=== PATIENT | male | born 1995 | race Two or more races ===

== ENCOUNTER 2021-01-17 14:29 | Outpatient (CLI) | payer OTHER ==
[2021-01-20 21:44] VITALS: BP 160/93
--- NOTE | 2021-01-20 21:44 | SLEEP CARE CONSULTATION ---
Information from patient questionnaire entered by Laxmi Pulido. I have reviewed and concur with the information entered by Laxmi Pulido. This document represents the service I personally performed and the decisions made by me, Stephany Mckeon MD, [facility]. History of Present Illness Service Date and Time: 01/17/2021 1429 Reason for Visit: New patient Chief Complaint: reports: Snoring, Excessive daytime sleepiness, Frequent awakenings at night Date of Onset: 1.5 years Usual bedtime: before 10pm Time it takes to fall asleep: 30-45 minutes Snores at night: Yes Observed to quit breathing while asleep: No Sleeps alone due to snoring: No Number of times waking at night: 1 Reasons for waking at night: reports: Bathroom Toss, Turn, or Twitch while sleeping: Yes Recalls having dreams: Yes Usually gets out of bed at: 5 am Feels refreshed in the morning: Yes Morning headache: No Sleepy or fatigued during the day: Yes Ever fallen asleep while driving: No Takes day naps: Yes Dreams during day naps: No Prior sleep studies: No Additional HPI information: I had the pleasure of seeing Mr. Anderson today regarding the possibility of him having a sleep disorder. As you know, he is a 25 year old gentleman who complains of loud snore. The patient tells me that he normally goes to bed around 9 - 10 pm, and it takes him approximately 30 minutes to fall asleep. He has not been observed to stop breathing in his sleep. His can still sleep in the same bed. He can recall waking up on the average of 1 time during the night. Most of the time he wakes up because of having to use the bathroom. He has never awakened because of his own snoring, choking, or having to gasp for air. There is a lot of tossing and turning in his sleep. No somniloquy (sleep talking) or somnambulism (sleep walking). Generally he can recall having dreams. In the morning he usually gets up out of the bed around 5 - 6 a.m. not feeling refreshed nor rested. He usually does not have a morning headache. During the day he complains of feeling sleepy and fatigued. His score on [place] Sleepiness Scale is 5 out of 24. He never has fallen asleep while driving nor has had any accident due to sleepiness. He usually takes naps during the day. He reports having impaired concentration during the day. - Parasomnia Symptoms Ever been unable to move upon waking from sleep: No Ever felt weak in the knees when startled or emotional: No Bothered by creepy, crawly, restless sensations in legs: No Problems with memory or concentration: No Subjective Initial [place] Sleepiness Scale score: 5 (in 2020) Social History The patient's occupation is a [employer]. Patient is Single and lives in [place]. Have you smoked in the past 12 months: No Alcohol use: Yes Alcohol amount and frequency: 1 cup 1-2 times a month Caffeine use: Yes Caffeine amount and frequency: 200 mg Family History Family history of sleep disordered breathing: No Allergies and Home Medications Drug allergies reviewed: Yes Home medication list reviewed: Yes Review of Systems Weight gain over past 5 years: 25-30 Cardiovascular: denies: high blood pressure, palpitations, chest pain, irregular heart rate or pulse, leg or foot swelling, have to sleep sitting up, other Respiratory: denies: shortness of breath, wheeze, sputum production, chronic cough, other Gastrointestinal: denies: heartburn, difficulty swallowing, nausea, vomitting, diarrhea, abdominal pain, other Urinary: denies: incontinence, frequency, urgency, impotence, other Neurological: denies: headaches, seizure, head trauma, disorientation, speech dysfunction, gait or balance problems, fainting or unconsciousness, other Psychiatric: denies: Attention Deficit Hyperactivity, anxiety, depression, mood disorder, claustrophobia, other Ear/Nose/Throat: denies: nasal congestion, sinus problems, nose bleeds, dry mouth/throat, hoarseness, injury to nose, tonsillectomy, wisdom teeth removed, other Endocrine: denies: thyroid disease, history of goiter, sluggishness, too hot or cold, excessive thirst, increased appetite, increased urination, unexplained weakness, other Musculoskeletal: denies: joint pain, neck pain, back pain, joint swelling, muscle pain or cramping, mobility problems, other Immunologic: reports: sneezing Physical Exam Vital signs obtained and entered by: Dr. mckeon Blood Pressure: 160/93 Cuff size: regular Heart Rate: 86 O2 Saturation: 97 Weight: 286 lb Neck circumference: 16.5 Mood/affect: normal HEENT: No craniofacial malformation Nostrils: partially obstructed Mouth and throat: narrow oropharynx Soft palate: long Hard palate: normal Uvula: normal Uvula visualization: 50% Mallampati Class II Tongue: normal in size Tonsils: small Impression and Plan IMPRESSION: 1. Obstructive Sleep Apnea-Hypopnea Syndrome, as suggested by history of loud and irregular snoring, and daytime hypersomnolence. Narrow oropharynx and obesity are common predisposing factors for obstructive sleep apnea-hypopnea syndrome. I recommend proceeding to polysomnography to confirm the diagnosis and to assess severity. If he has significant sleep disordered breathing, a manual CPAP titration study will also be performed to find the optimal treatment pressure. I informed the patient of what the sleep studies involve and after some discussion, he agreed to proceed. Because the in-laboratory polysomnography is booked out quite far, a home sleep apnea test (HSAT) will first be performed. Plan: 1. Schedule a home sleep apnea test (HSAT). 2. Avoid long distance driving or when feeling sleepy. 3. Avoid alcohol, sedative and muscle relaxant around bedtime. 4. Attempt to lose weight. 5. Return for follow up after test. Visit Type: In Office Time Spent with Patient (minutes): 15 Provider Statement: I spent 100% of the Face to Face Visit with the patient with greater than 50% spent counseling the patient and coordination of care.
== END 2021-01-17 14:30 | disposition home or self-care (01) ==
LOC: SC 14:29
PROVIDERS: ATTEND Internal Medicine Pulmonary Disease
DX: R06.83 Snoring (principal); G47.8 Other sleep disorders; G47.10 Hypersomnia, unspecified
CPT/HCPCS: 99202; 99212

== ENCOUNTER 2021-02-09 07:58 | Outpatient (CLI) | payer OTHER | END 2021-02-09 07:59 | disposition home or self-care (01) | LOC: SC 07:58 | PROVIDERS: ATTEND Internal Medicine Pulmonary Disease | DX: R06.83 Snoring (principal); G47.8 Other sleep disorders; I10 Essential (primary) hypertension; G47.10 Hypersomnia, unspecified | CPT/HCPCS: 95806 ==

== ENCOUNTER 2021-02-21 15:04 | Outpatient (CLI) | payer OTHER ==
--- NOTE | 2021-02-21 15:56 | SLEEP CARE CONSULTATION ---
Information from patient questionnaire entered by Eldon Bauer. I have reviewed and concur with the information entered by Eldon Bauer. This document represents the service I personally performed and the decisions made by me, Stephany Palacios MD, [facility]. History of Present Illness Service Date and Time: 02/21/2021 1504 Initial [place] Sleepiness Scale score: 5 (in 2020) Current [place] Sleepiness Scale score: 12 Additional HPI information: HPI: Mr. Anderson returned for follow up of the sleep study he had on 02/09/2021. The polysomnography showed no significant. The AHI was 3.0 and magy oxygen saturation of 90%. He reports being awake for part of the 10-hour recording. The patient was informed of these findings. I explained to him that the test was negative for significant sleep disordered breathing. The patient continues to complain of excessive daytime sleepiness and fatigue. He snores loudly at home. Sleep Study - Results Type of Sleep Study: Home sleep study Prior sleep studies: No Allergies and Home Medications Drug allergies reviewed: Yes Home medication list reviewed: Yes Review of Systems Review of systems same as previous: Yes Physical Exam Height: 6 ft 1 in Weight: 286 lb Body Mass Index: 37.7 BMI Classification: Obese Impression and Plan IMPRESSION: 1. Obstructive Sleep Apnea-Hypopnea Syndrome, not documented by the home sleep apnea test (HSAT). The long recording time might have caused the test to be falsely negative because awake time during the recording will dilute out the AHI. I will order an in-laboratory polysomnography to further evaluation his complaints. PLAN: 1. Schedule the patient for an in-laboratory polysomnography. 2. Attempt to lose weight and avoid alcohol consumption near bedtime. 3. Return for a follow up after the sleep study. Counseling Topics: Weight control Visit Type: In Office Time Spent with Patient (minutes): 15 Provider Statement: I spent 100% of the Face to Face Visit with the patient with greater than 50% spent counseling the patient and coordination of care.
== END 2021-02-21 15:05 | disposition home or self-care (01) ==
LOC: SC 15:04
PROVIDERS: ATTEND Internal Medicine Pulmonary Disease
DX: G47.33 Obstructive sleep apnea (adult) (pediatric) (principal); E66.9 Obesity, unspecified; Z68.37 Body mass index [BMI] 37.0-37.9, adult
CPT/HCPCS: 99212

== ENCOUNTER 2021-04-15 20:00 | Outpatient (CLI) | payer OTHER | END 2021-04-15 20:01 | disposition home or self-care (01) | LOC: SC 20:00 | PROVIDERS: ATTEND Internal Medicine Pulmonary Disease | DX: R06.83 Snoring (principal); R06.81 Apnea, not elsewhere classified; G47.10 Hypersomnia, unspecified | CPT/HCPCS: 95810 ==

== ENCOUNTER 2021-04-25 09:12 | Outpatient (CLI) | payer OTHER ==
--- NOTE | 2021-04-25 09:35 | SLEEP CARE CONSULTATION ---
Information from patient questionnaire entered by Laxmi Pulido. I have reviewed and concur with the information entered by Laxmi Pulido. This document represents the service I personally performed and the decisions made by me, Stephany Palacios MD, [facility]. History of Present Illness Service Date and Time: 04/25/2021911 Initial [place] Sleepiness Scale score: 5 (in 2020) Current [place] Sleepiness Scale score: 6 Additional HPI information: HPI: Mr. Anderson returned for follow up of the sleep study he had on 04/15/2021. The polysomnography showed that the patient had normal sleep efficiency. The sleep architecture was normal as well. Respiratory monitoring showed no significant sleep disordered breathing (AHI = 1.9) or hypoxia ([place] oxygen saturation of 88%). The few respiratory events occurred mainly during REM sleep (supine AHI = 1.9; non-supine = 1.86). Snore was infrequent and moderate in intensity. There was No significant periodic leg movement of sleep. Cardiac rhythm was normal sinus rhythm without significant arrhythmia. No abnormal behavior (parasomnia) observed during the night. Sleep Study - Results Type of Sleep Study: Polysomnography Prior sleep studies: Yes (HST) Year and Where: 2020 - [facility] Allergies and Home Medications Drug allergies reviewed: Yes Home medication list reviewed: Yes Review of Systems Review of systems same as previous: Yes Physical Exam Height: 6 ft 1 in Weight: 286 lb Body Mass Index: 37.7 BMI Classification: Obese Impression and Plan IMPRESSION: 1. Primary Snore (ICD-10 R06.83), intermittent and moderate, but no significant sleep disordered breathing. No treatment is necessary. PLAN: 1. Avoid weight gain. 2. Return for a follow up on as needed basis. Follow up recommended for: Weight management Visit Type: In Office Time Spent with Patient (minutes): 10 Provider Statement: I spent 100% of the Face to Face Visit with the patient with greater than 50% spent counseling the patient and coordination of care.
== END 2021-04-25 09:13 | disposition home or self-care (01) ==
LOC: SC 09:12
PROVIDERS: ATTEND Internal Medicine Pulmonary Disease
DX: R06.83 Snoring (principal); E66.9 Obesity, unspecified; Z68.37 Body mass index [BMI] 37.0-37.9, adult
CPT/HCPCS: 99212